=== PATIENT | female | born 1985 | race Two or more races ===

== ENCOUNTER 2018-12-17 19:20 | Emergency (ER) | payer MEDICAID ==
[~2018-12-17] VITALS: Ht 170.2 cm; Wt 63.0 kg
[2018-12-17 19:29] VITALS: BP 124/86
== END 2018-12-17 23:03 | disposition left against medical advice (07) ==
LOC: ER 19:20
DX: R10.13 Epigastric pain (principal); Z53.21 Procedure and treatment not carried out due to patient leaving prior to being seen by health care provider